=== PATIENT | female | born 1985 | race Caucasian/White ===

== ENCOUNTER 2016-06-10 22:07 | Emergency (ER) | payer OTHER ==
[~2016-06-10] VITALS: Ht 162.6 cm; Wt 101.4 kg
[~2016-06-10 22:07] MED LIST: MTR600X PO; OXYC-57 PO; PEDICHW53
[2016-06-10 22:09] VITALS: TEMP 37.1; Ht 162.6 cm; Wt 101.4 kg
[2016-06-10 22:34] VITALS: O2SAT 97
--- NOTE | 2016-06-10 22:44 | DIAGNOSTIC IMAGING REPORT ---
CHEST ONE VIEW PORTABLE CLINICAL HISTORY: CHEST PAIN dyspnea COMPARISON STUDY: No previous studies for comparison. FINDINGS: The bones soft tissues and hemidiaphragms are normal. The cardiomediastinal silhouette is normal. The lungs are clear. The pulmonary vasculature is normal. IMPRESSION: Negative chest. Electronically signed by: Alexis Gomez M.D. 06/10/2016 10:43 PM Dictated Date/Time: 06/10/2016 10:43 PM
[2016-06-10 23:17] LABS: BASO % 0.4 %; BASO ABS # 0.05 K/uL (0-0.2); COMPLETE YES; EOS % 2.1 %; IG% 0.2 %; LYMPH % 39.9 %; LYMPH ABS # 4.79 K/uL (1.2-3.4); MEAN CELL VOLUME 74.6 fL (80-100); MEAN CORPUSCULAR HEMOGLOBIN 23.8 pg (25-34); MEAN CORPUSCULAR HGB CONC 31.9 g/dl (32-36); MEAN PLATELET VOLUME 9.6 fL (7.4-10.4); MONO % 7.3 %; NEUT % 50.1 %; PLATELET COUNT 314 K/uL (130-400); RED BLOOD COUNT 4.96 M/uL (4.2-5.4); WHITE BLOOD COUNT 12.01 K/uL (4.8-10.8)
[2016-06-10] MEDS ORDERED: BUPR-79 PO (23:17)
[2016-06-10] MEDS ORDERED: CALC500C3 PO (23:17)
[2016-06-10] MEDS ORDERED: TRAZ50TA35 PO (23:17)
[2016-06-10] MEDS ORDERED: ISOT40CA PO (23:17)
[2016-06-10] MEDS ORDERED: METO25TA3 PO (23:17)
[2016-06-10 23:33] LABS: ALT/SGPT 26 U/L (12-78); AST/SGOT 14 U/L (15-37); BLOOD UREA NITROGEN 14 mg/dl (7-18); BUN/CREATININE RATIO 22.2 (10-20); CALCIUM 8.9 mg/dl (8.5-10.1); CARBON DIOXIDE 27 mmol/L (21-32); CHLORIDE 105 mmol/L (98-107); CREATININE 0.65 mg/dl (0.60-1.20); GLUCOSE 104 mg/dl (70-99); POTASSIUM 3.9 mmol/L (3.5-5.1); SODIUM 142 mmol/L (136-145)
[2016-06-10 23:43] LABS: ALKALINE PHOSPHATASE 67 U/L (45-117); CKMB/CK RATIO 1.3 (0-3.0); PREG INTERNAL NEGATIVE QC NEG CLEAR BACKGROUND; PREG INTERNAL POSITIVE QC POS CONTROL LINE
[2016-06-11] MEDS ORDERED: KETOROLAC TROMETHAMINE 30 MG/ML VIAL IV STA (00:26)
[2016-06-11 02:00] VITALS: BP 109/72; PULSE 76; O2SAT 98
--- NOTE | 2016-06-11 06:37 | EMERGENCY ROOM VISIT NOTE ---
History First contact with patient: 22:11 Chief Complaint: CHEST PAIN Stated Complaint: CHEST PAIN Nursing Triage Summary: pt c/o cp for past couple weeks, pt seen pcp this past week and was told if she had worse cp to come to er, pt also had some sob with the cp tonight History of Present Illness The patient is a 31 year old female who presents to the Emergency Room with complaints of chest pain with occasional shortness of breath for the past week who saw her family care doctor the other day and has a stress test scheduled for next week. Patient states the pain is worse with palpation and movement. She describes the pain as aching, ranging in severity 4 out of 10 to the midsternum. No recent travel. No control. Patient does not smoke. No family history of PE or DVT. Grandfather did have a heart attack in his 60s. Patient denies abdominal pain, fever, chills, cough, congestion, leg pain or swelling. Review of Systems See HPI for pertinent positives & negatives. A total of 10 systems reviewed and were otherwise negative. Past Medical/Surgical History Medical Problems: (1) 35 week Social History Smoking Status: Never Smoker Smokeless Tobacco Use: No Drug Use: none Housing Status: lives with family Current/Historical Medications Scheduled Bupropion (Wellbutrin Sr), 150 MG PO BID Isotretinoin (Claravis), 40 MG PO QPM Metoprolol Succ (Toprol Xl) (Toprol-Xl), 25 MG PO BID Trazodone Hcl (Trazodone), 50 MG PO HS Scheduled PRN Calcium Carbonate (Tums), 1,000 MG PO Q6 PRN for Heartburn Ibuprofen (Ibuprofen), 600 MG PO Q4H PRN for Pain, DRAKE, Cramping, or Fever Allergies Coded Allergies: No Known Allergies (Unverified , 06/10/16) Physical Exam Vital Signs Date Time Temp Pulse Resp B/P Pulse Ox O2 Delivery O2 Flow Rate FiO2 06/11/16 02:00 76 20 109/72 98 Room Air 06/11/16 00:00 86 20 115/67 98 Room Air 06/10/16 22:34 97 Room Air 06/10/16 22:33 97 Room Air 06/10/16 22:24 88 06/10/16 22:09 37.1 93 16 140/89 99 Room Air Pain Rating (0-10): 0 Physical Exam VITALS: Vitals are noted on the nurse's note and reviewed by myself. Vital signs stable. GENERAL: Pleasant female, in no acute distress, nondiaphoretic, well-developed well-nourished. SKIN: The skin was without rashes, erythema, edema, or bruising. There is no tenting of the skin. Capillary reflex less than 2 seconds. HEAD: Normocephalic atraumatic. EARS: External auditory canals clear, tympanic membranes pearly lynn without erythema or effusion bilaterally. EYES: Pupils equal round and reactive to light and accommodation. Conjunctivae without injection, sclerae without icterus. Extraocular movements intact. NOSE: Patent, turbinates without inflammation or discharge. MOUTH: Mucous membranes moist. Pharynx without erythema or exudate. Uvula midline. Airway patent. Tongue does not deviate. NECK: Supple without nuchal rigidity. No lymphadenopathy. No thyromegaly. Cervical spine is nontender. No JVD. HEART: Regular rate and rhythm without murmurs gallops or rubs. Chest tender to palpation midsternal easily reproducing symptoms LUNGS: Clear to auscultation bilaterally without wheezes, rales or rhonchi. No dullness to percussion. No retractions or accessory muscle use. ABDOMEN: Positive bowel sounds x 4. Normal tympanic percussion. Soft, nontender, without masses or organomegaly. Baxter sign negative. No guarding or rebound tenderness. MUSCULOSKELETAL: No muscle atrophy, erythema, or edema noted. NEURO: Patient was alert and oriented to person place and time. Normal sensation to light and sharp touch. No focal neurological deficits. Medical Decision & Procedures Laboratory Results 06/10/16 22:55 Red Blood Count 4.96, Mean Corpuscular Volume 74.6, Mean Corpuscular Hemoglobin 23.8, Mean Corpuscular Hemoglobin Concent 31.9, Mean Platelet Volume 9.6, Neutrophils (%) (Auto) 50.1, Lymphocytes (%) (Auto) 39.9, Monocytes (%) (Auto) 7.3, Eosinophils (%) (Auto) 2.1, Basophils (%) (Auto) 0.4, Neutrophils # (Auto) 6.02, Lymphocytes # (Auto) 4.79, Monocytes # (Auto) 0.88, Eosinophils # (Auto) 0.25, Basophils # (Auto) 0.05 06/10/16 22:55 Test 06/10/16 22:55 06/11/16 00:57 White Blood Count 12.01 K/uL (4.8-10.8) Red Blood Count 4.96 M/uL (4.2-5.4) Hemoglobin 11.8 g/dL (12.0-16.0) Hematocrit 37.0 % (37-47) Mean Corpuscular Volume 74.6 fL (80-100) Mean Corpuscular Hemoglobin 23.8 pg (25-34) Mean Corpuscular Hemoglobin Concent 31.9 g/dl (32-36) Platelet Count 314 K/uL (130-400) Mean Platelet Volume 9.6 fL (7.4-10.4) Neutrophils (%) (Auto) 50.1 % Lymphocytes (%) (Auto) 39.9 % Monocytes (%) (Auto) 7.3 % Eosinophils (%) (Auto) 2.1 % Basophils (%) (Auto) 0.4 % Neutrophils # (Auto) 6.02 K/uL (1.4-6.5) Lymphocytes # (Auto) 4.79 K/uL (1.2-3.4) Monocytes # (Auto) 0.88 K/uL (0.11-0.59) Eosinophils # (Auto) 0.25 K/uL (0-0.5) Basophils # (Auto) 0.05 K/uL (0-0.2) RDW Standard Deviation 43.3 fL (36.4-46.3) RDW Coefficient of Variation 15.8 % (11.5-14.5) Immature Granulocyte % (Auto) 0.2 % Immature Granulocyte # (Auto) 0.02 K/uL (0.00-0.02) D-Dimer < 190 ug/L FEU (0-500) Anion Gap 10.0 mmol/L (3-11) Est Creatinine Clear Calc Drug Dose 145.3 ml/min Estimated GFR () 137.1 Estimated GFR (Non- 118.3 BUN/Creatinine Ratio 22.2 (10-20) Calcium Level 8.9 mg/dl (8.5-10.1) Total Bilirubin 0.3 mg/dl (0.2-1) Direct Bilirubin < 0.1 mg/dl (0-0.2) Aspartate Amino Transf (AST/SGOT) 14 U/L (15-37) Alanine Aminotransferase (ALT/SGPT) 26 U/L (12-78) Alkaline Phosphatase 67 U/L (45-117) Total Creatine Kinase 89 U/L (26-192) Creatine Kinase MB 1.2 ng/ml (0.5-3.6) Creatine Kinase MB Ratio 1.3 (0-3.0) Total Protein 7.6 gm/dl (6.4-8.2) Albumin 3.7 gm/dl (3.4-5.0) Lipase 138 U/L (73-393) Thyroid Stimulating Hormone (TSH) 4.470 uIu/ml (0.300-4.500) Human Chorionic Gonadotropin, Qual NEG (NEG) Troponin I < 0.015 ng/ml (0-0.045) Medications Administered Medications (Trade) Dose Ordered Sig/[place] Route Start Time Stop Time Status Last Admin Dose Admin Ketorolac Tromethamine (Toradol Inj) 30 mg NOW STAT IV 06/11/16 00:26 06/11/16 00:27 DC 06/11/16 00:33 30 MG ED Course Prior records/ancillary studies reviewed. Triage Nursing notes reviewed. Additional history obtained from family. The patient's history was concerning for chest pain. Differential diagnosis: Etiologies such as cardiac ischemia, aortic dissection, pulmonary embolism, pneumonia, pneumothorax, musculoskeletal, infections, pericarditis, myocarditis , esophageal rupture, gastrointestinal, as well as others were entertained. Physical examination: As above. ER treatment provided: Toradol On reassessment the patient felt better. Diagnostic interpretation by me: The electrocardiogram was negative for pathologic change. Normal sinus, normal intervals, no acute ST-T wave changes. Impression normal sinus rhythm interpreted by myself The labs revealed troponin 2. Negative d-dimer Imaging studies: Chest x-ray with no acute consolidation or pneumothorax per my interpretation Exam and history seem consistent with noncardiac chest pain, most likely costochondritis. Symptoms are easily reproduced with palpation. Patient did not have acute abdomen on exam. Normal EKG. Negative troponin 2. Negative d- dimer. Patient felt better after Toradol. She is advised to keep her apartment as scheduled for her stress test or to return to the ER immediately for chest pain, difficulty breathing, diaphoresis, worsening signs or symptoms or as needed. By the evaluation outlined above emergent etiologies such as cardiac ischemia, aortic dissection, pulmonary embolism, pneumonia, pneumothorax, infections, pericarditis, myocarditis, gastrointestinal, as well as others were deemed relatively unlikely. The pt informed about the findings as listed above. All questions were answered and pleased with the treatment. Return instructions were outlined and the patient was discharged in stable condition. Referral: The patient was referred back to primary care physician for follow-up in 2 to 3 days for a recheck of the current condition. Case reviewed with my attending Medical Decision As above Impression Primary Impression: Costochondritis Departure Information Dispostion Home / Self-Care Condition GOOD Forms HOME CARE DOCUMENTATION FORM, IMPORTANT VISIT INFORMATION Patient Instructions [facility], ED Chest Pain Costochondritis Additional Instructions Ibuprofen(Motrin, Advil) may be used for fever or pain. Use 600mg every six hours as needed. Take with food. Avoid using more than 2400mg in a 24 hour period. Do not use 2400mg per day for more than three consecutive days without physician direction. Prolonged inappropriate use can lead to stomach upset or ulcers. (AND/OR) Acetaminophen(Tylenol) may be used for fever or pain. Use 1000mg every six hours as needed. Avoid using more than 3000mg in a 24 hour period. Rest and drink plenty of fluids as tolerated. Continue current medications. Avoid strenuous activities and anything that worsens your pain. Resume normal activities once your symptoms resolve. Return to the ER immediately for worsening or persistent chest pain, abdominal pain, vomiting, fevers, chest pains, difficulty breathing, worsening of your condition, or as needed. Follow up with your primary physician in 2-3 days for a recheck of your current condition. Keep your appointment as scheduled for your stress test next week.
== END 2016-06-11 02:07 | disposition home or self-care (01) ==
LOC: C.EDB 22:08 → C.EDA 06-11 02:07
DX: M94.0 Chondrocostal junction syndrome [Tietze] (principal); R06.02 Shortness of breath; Z79.899 Other long term (current) drug therapy

== ENCOUNTER 2018-09-18 08:43 | Inpatient (IN) ==
[2018-09-18] MEDS ORDERED: KETOROLAC TROMETHAMINE 15 MG/ML VIAL IV STA (09:47)
[2018-09-18] MEDS ORDERED: ALBUT/IPRATROP 3MG/0.5MG NEB 3 ML VIAL NEB STA ×2 (09:47→10:57)
[2018-09-18] MEDS ORDERED: ONDANSETRON INJ 2 MG/ML 2 ML VIAL IV STA (09:47)
[2018-09-18] MEDS ORDERED: SODIUM CHLORIDE 0.9% 1000ML 1,000 ML IV SCH (10:00)
--- NOTE | 2018-09-18 10:08 | XRay Report ---
XR chest 1V portable HISTORY: cough COMPARISON: Chest 06/10/2016. FINDINGS: There is a new right medial lung base airspace opacity which partially obscures the right h emidiaphragm. The left lung is clear. The heart is normal in size. No pleural effusions. No pneumotho rax. IMPRESSION: A new right lower lobe airspace opacity which likely represents a pneumonia. Electronically signed by: Jonnie Dickerson M.D. 09/18/2018 10:07 AM
--- NOTE | 2018-09-18 10:33 | Emergency Department Note ---
ED Provider Note CHIEF COMPLAINT: Cough, SOB, vomiting HISTORY OF PRESENTING ILLNESS: This is a 33-year-old female who presents to the emergency department by private vehicle with complaints of vomiting that started this morning. She states that she had abrupt onset of vomiting around 1 AM, nonbilious and nonbloody. She denies any abdominal pain or diarrhea associated with her symptoms. She states that she has been feeling short of breath for the past few days and has been dealing with a progressively worsening cough over the past week. She states that she has a history of asthma and saw her PCP for this, they put her on steroids but no antibiotic. She has been using her inhaler off and on with no improvement. She notes that she has been having some fevers and chills at home, generalized body aches, and some headaches off and on as well. She denies a headache currently. She denies any chest pain. She denies any hemoptysis. She denies any urinary symptoms or unusual rash. REVIEW OF SYSTEMS: A complete 10 point review of systems was reviewed with the patient with pertinent positives and negatives as per history of present illness. All else were negative. PAST MEDICAL HISTORY: Depression, asthma, hypertension, section, ton sillectomy SOCIAL HISTORY: Lives at home, she denies tobacco use ALLERGIES: No known allergies PHYSICAL EXAM: CONSTITUTIONAL: Pleasant and cooperative. Nontoxic-appearing and in no acute distress, but appears to feel unwell. Moderately dehydrated. HEENT: Normocephalic, atraumatic. PERRL, EOMI. TMs normal. Pharynx normal. Dry mucous membranes. NECK: Supple, full active range of motion without discomfort. No nuchal rigidity or meningismus. Mild bilateral anterior cervical adenopathy. RESPIRATORY: Diminished in the right lower base with a few fine crackles, scattered expiratory wheezes, no rhonchi or stridor. Equal expansion bilaterally. No tachypnea or accessory muscle use noted. CARDIOVASCULAR: Tachycardic. Regular rhythm with no murmurs, rubs or gallops. Normal peripheral perfusion, 2+ distal pulses in all 4 extremities. No edema. GASTROINTESTINAL: Soft, nontender throughout, nondistended. No rebound tenderness or guarding. No palpable masses or HSM. Bowel sounds present in all quadrants. No CVA tenderness bilaterally. MUSCULOSKELETAL: Full range of motion of all joints without discomfort. INTEGUMENTARY: No rash or other significant dermatologic conditions noted. NEUROLOGIC: Alert and oriented X 4 with normal affect. Normal strength and sensation in all 4 extremities. Normal speech. Normal gait observed. ED COURSE AND MEDICAL DECISION MAKING: CC: Patient presenting with complaint of cough, shortness of breath, and vomiting DIFFERENTIAL DIAGNOSIS: Includes, but not limited to viral illness, gastroenteritis, gastritis, peptic ulcer disease, pancreatitis, cholecystitis, bronchitis, asthma exacerbation, pneumonia, UTI, sepsis/bacteremia, dehydration, among others. INTERPRETATION OF LABS: Marked leukocytosis with left shift, mild anemia, no significant elect light abnormalities, normal renal function, normal liver enzymes and lipase. Significantly elevated lactic acid level. Serum negative. UA consistent with mild dehydration, negative for infection. IMAGING: XR chest 1V portable HISTORY: cough COMPARISON: Chest 06/10/2016. FINDINGS: There is a new right medial lung base airspace opacity which partially obscures the right hemidiaphragm. The left lung is clear. The heart is normal in size. No pleural effusions. No pneumothorax. IMPRESSION: A new right lower lobe airspace opacity which likely represents a pneumonia. MEDICATION RECONCILIATION: I attest that I have personally reviewed the patient's current medication list. INITIAL VITAL SIGNS REVIEW: I reviewed the patient's initial vital signs and interpret them as follows: T: Afebrile; BP: Normotensive; HR: Tachycardic; RR: Within normal limits; Pulse Ox: Within normal limits on room air. Blood pressure screening: The patient was found to have normal blood pressure on screening and does not require follow-up for repeat blood pressure check. MDM SUMMARY: Patient was evaluated at bedside, history and physical exam performed. Patient is alert and oriented, in no acute distress, resting calmly in stretcher. Patient is nontoxic-appearing, but does appear to feel unwell and is noted to be moderately dehydrated. Patient states that she feels like she has a fever, I did recheck her temperature myself and was noted to be elevated at 39.1, p.o. Tylenol and IV Toradol was ordered for this. Orders were placed at bedside for labs, UA, blood cultures x2 and lactic acid, IV fluid bolus of 30 mL/kg per sepsis protocol, DuoNeb treatment for wheezing and shortness of breath, chest x-ray to evaluate for cardiopulmonary disease. Patient discussed with Dr. Solis, who agrees with my assessment, plan, and disposition. Labs and imaging reviewed as above, notable for significant leukocytosis with left shift as well as lactic acidosis. Chest x-ray shows a right lower lobe pneumonia, given her respiratory symptoms, I suspect this is most likely the cause for her fevers. She was covered empirically with 2 g IV cefepime and 500 mg IV azithromycin. I spoke with Dr. Subramanian, [facility] Hospitalist, who agrees to evaluate the patient for admission. Patient reassessed multiple times throughout ED stay, she has remained hemodynamically stable, tachycardia is downtrending with IV fluids, and she is defervescing appropriately after Toradol and Tylenol. Lung sounds reassessed, wheezing improved after DuoNeb's. Patient was updated on all results and plan for admission, she verbalized understanding and was in agreement with this plan. Patient was stable at time of admission. CRITICAL CARE NOTE: I have personally spent greater than 35 minutes of critical care time in the direct management of this patient. This includes bedside care, interpretation of diagnostic studies, and testing, discussion with consultants, patient, and family members, and other required patient management activities. This 35 minutes is in excess of all separately billable procedures. The chart was completed utilizing [employer] Speech voice recognition software. Grammatical errors, random word insertions, pronoun errors, and incomplete sentences are an occasional consequence of this system due to software limitations, ambient noise, and hardware issues. Any formal questions or concerns about the content, text, or information contained within the body of t his dictation should be directly addressed to the nurse practitioner for clarification. Impression & Plan Pneumonia, Elevated lactic acid level, Tachycardia Past Med/Surg History Medical History Asthma HTN (hypertension) History of wisdom tooth extraction Depression Surgical History History of section History of tonsillectomy Family History Other Cancer Diabetes Hypertension Social History Preferred Language: Estonian Communication Ability: Effective Beliefs That Will Affect Care: None marital status: Current Living Situation: Significant Other current occupational status: employed Other Information That Helps Us Care for You: No Feels Safe at Home: Yes Safety Concerns: Feels Safe At This Time Smoking Status: Never smoker Hx Alcohol Use: No Hx Substance Use: No Results & Data Vital Signs Vital Signs - 24 hr 09/18/18 08:55 09/18/18 10:07 09/18/18 10:24 Temperature 37.5 C Temperature Source Oral Sepsis Recent Fever Within 48 Hours No Sepsis New/Unexplained Change in Mental Status No Sepsis Action Taken by Nursing No Action Required Pulse Rate 120 H Pulse Rate [Right Apical] 118 H Respiratory Rate 18 20 Respiratory Effort / Characteristics Non-Labored Spontaneous Non-Labored Spontaneous Respiratory Depth Normal Respiratory Pattern Regular Blood Pressure 129/69 Blood Pressure [Right Arm] Blood Pressure Mean 89 Blood Pressure Mean [Right Arm] Blood Pressure Position [Right Arm] Pulse Oximetry 99 96 97 Oxygen Delivery Method Room Air Room Air Room Air 09/18/18 10:27 09/18/18 11:04 09/18/18 11:22 Temperature 39.1 C H Temperature Source Oral Sepsis Recent Fever Within 48 Hours Sepsis New/Unexplained Change in Mental Status Sepsis Action Taken by Nursing Pulse Rate Pulse Rate [Right Apical] 123 H 132 H Respiratory Rate 22 20 Respiratory Effort / Characteristics Spontaneous Respiratory Depth Normal Respiratory Pattern Blood Pressure Blood Pressure [Right Arm] 117/71 Blood Pressure Mean Blood Pressure Mean [Right Arm] 86 Blood Pressure Position [Right Arm] Sitting Pulse Oximetry 99 96 Oxygen Delivery Method Room Air Room Air 09/18/18 12:09 09/18/18 12:27 Temperature Temperature Source Sepsis Recent Fever Within 48 Hours Sepsis New/Unexplained Change in Mental Status Sepsis Action Taken by Nursing Pulse Rate Pulse Rate [Right Apical] Respiratory Rate Respiratory Effort / Characteristics Spontaneous Short of Breath SOB on Exertion Respiratory Depth Deep Respiratory Pattern Irregular Blood Pressure Blood Pressure [Right Arm] Blood Pressure Mean Blood Pressure Mean [Right Arm] Blood Pressure Position [Right Arm] Pulse Oximetry 95 Oxygen Delivery Method Room Air Room Air Laboratory Data Result diagrams: 09/18/18 10:12 09/18/18 10:12 Lab Results 09/18/18 09/18/18 09/18/18 Range/Units 10:12 10:12 10:12 WBC 32.77 H* (4.8-10.8) K/uL RBC 4.79 (4.2-5.4) M/uL Hgb 11.3 L (12.0-16.0) g/dL Hct 34.3 L (37-47) % MCV 71.6 L (80-100) fL MCH 23.6 L (25-34) pg MCHC 32.9 (32-36) g/dL RDW Std Deviation 42.0 (36.4-46.3) fL RDW Coeff of Terese 15.9 H (11.5-14.5) % Plt Count 418 H (130-400) K/uL MPV 9.1 (7.4-10.4) fL Immature Gran % (Auto) 0.7 % Neut % (Auto) 83.4 % Lymph % (Auto) 8.7 % [place] % (Auto) 7.0 % Eos % (Auto) 0.1 % Baso % (Auto) 0.1 % Immature Gran # (Auto) 0.22 H (0.00-0.02) K/uL Neut # (Auto) 27.35 H (1.4-6.5) K/uL Lymph # (Auto) 2.86 (1.2-3.4) K/uL [place] # (Auto) 2.28 H (0.11-0.59) K/uL Eos # (Auto) 0.03 (0-0.5) K/uL Baso # (Auto) 0.03 (0-0.2) K/uL Sodium 137 (136-145) mmol/L Potassium 3.5 (3.5-5.1) mmol/L Chloride 99 (98-107) mmol/L Carbon Dioxide 26 (21-32) mmol/L Anion Gap 13.0 H (3-11) BUN 18 (7-18) mg/dl Creatinine 0.93 (0.6-1.2) mg/dl Est Cr Clr Drug Dosing 97.4 ml/min Est GFR ( Amer) 93.6 Est GFR (Non-Af Amer) 80.8 BUN/Creatinine Ratio 19.5 (10-20) Glucose 98 (70-99) mg/dl Lactate (0.4-2.0) mmol/L Calcium 9.0 (8.5-10.1) mg/dl Total Bilirubin 0.6 (0.2-1) mg/dl AST 13 L (15-37) U/L ALT 28 (12-78) U/L Alkaline Phosphatase 60 (45-117) U/L Total Protein 7.7 (6.4-8.2) gm/dl Albumin 3.4 (3.4-5.0) gm/dl Globulin 4.3 H (2.5-4.0) gm/dl Albumin/Globulin Ratio 0.8 L (0.9-2) Lipase 86 (73-393) U/L HCG, Qual Negative (Negative) Urine Color Urine Appearance (Clear) Urine pH (4.5-7.5) Ur Specific [place] (1.000-1.030) Urine Protein (Negative) Urine Glucose (UA) (Negative) Urine Ketones (Negative) Urine Blood (Negative) Urine Nitrite (Negative) Urine Bilirubin (Negative) Urine Urobilinogen (Negative) Ur Leukocyte Esterase (Negative) Urine WBC (Auto) (0-5) /hpf Urine RBC (Auto) (0-4) /hpf U Hyaline Cast (Auto) (0-5) /lpf U Epithel Cells (Auto) (0-5) /lpf Urine Bacteria (Auto) (Negative) 09/18/18 09/18/18 Range/Units 11:13 11:41 WBC (4.8-10.8) K/uL RBC (4.2-5.4) M/uL Hgb (12.0-16.0) g/dL Hct (37-47) % MCV (80-100) fL MCH (25-34) pg MCHC (32-36) g/dL RDW Std Deviation (36.4-46.3) fL RDW Coeff of Terese (11.5-14.5) % Plt Count (130-400) K/uL MPV (7.4-10.4) fL Immature Gran % (Auto) % Neut % (Auto) % Lymph % (Auto) % [place] % (Auto) % Eos % (Auto) % Baso % (Auto) % Immature Gran # (Auto) (0.00-0.02) K/uL Neut # (Auto) (1.4-6.5) K/uL Lymph # (Auto) (1.2-3.4) K/uL [place] # (Auto) (0.11-0.59) K/uL Eos # (Auto) (0-0.5) K/uL Baso # (Auto) (0-0.2) K/uL Sodium (136-145) mmol/L Potassium (3.5-5.1) mmol/L Chloride (98-107) mmol/L Carbon Dioxide (21-32) mmol/L Anion Gap (3-11) BUN (7-18) mg/dl Creatinine (0.6-1.2) mg/dl Est Cr Clr Drug Dosing ml/min Est GFR ( Amer) Est GFR (Non-Af Amer) BUN/Creatinine Ratio (10-20) Glucose (70-99) mg/dl Lactate 3.7 H* (0.4-2.0) mmol/L Calcium (8.5-10.1) mg/dl Total Bilirubin (0.2-1) mg/dl AST (15-37) U/L ALT (12-78) U/L Alkaline Phosphatase (45-117) U/L Total Protein (6.4-8.2) gm/dl Albumin (3.4-5.0) gm/dl Globulin (2.5-4.0) gm/dl Albumin/Globulin Ratio (0.9-2) Lipase (73-393) U/L HCG, Qual (Negative) Urine Color Dark Yellow Urine Appearance Clear (Clear) Urine pH 8.5 H (4.5-7.5) Ur Specific [place] 1.027 (1.000-1.030) Urine Protein Negative (Negative) Urine Glucose (UA) Negative (Negative) Urine Ketones Trace H (Negative) Urine Blood Trace H (Negative) Urine Nitrite Negative (Negative) Urine Bilirubin Negative (Negative) Urine Urobilinogen Negative (Negative) Ur Leukocyte Esterase Negative (Negative) Urine WBC (Auto) 1-5 (0-5) /hpf Urine RBC (Auto) 0-4 (0-4) /hpf U Hyaline Cast (Auto) 1-5 (0-5) /lpf U Epithel Cells (Auto) >30 H (0-5) /lpf Urine Bacteria (Auto) Negative (Negative) Administered Medications Guaifenesin/Codeine Phosphate (Robitussin-Ac Sugar Free) 10 ml PO Q6H PRN PRN Reason: Cough Stop: 10/18/18 14:29 Last Admin: 09/18/18 16:00 Dose: 10 ml Documented by: [id number] Methylprednisolone 30 mg/ (Syringe) 0.48 mls @ 1.5 mls/min IV TID RADHA Stop: 10/18/18 14:29 Last Admin: 09/18/18 15:55 Dose: 1.5 mls/min Documented by: [id number] Sodium Chloride (Nss 1000ml) 1,000 mls @ 125 mls/hr IV .Q8H RADHA Stop: 09/19/18 06:29 Last Admin: 09/18/18 15:56 Dose: 125 mls/hr Documented by: [id number] Ondansetron HCl (Zofran) 4 mg IV Q6H PRN PRN Reason: Nausea Stop: 10/18/18 14:29 Last Admin: 09/18/18 15:56 Dose: 4 mg Documented by: [id number] Discontinued Medications Acetaminophen (Tylenol) 1,000 mg PO NOW STA Stop: 09/18/18 10:58 Last Admin: 09/18/18 11:18 Dose: 1,000 mg Documented by: [id number] Albuterol (Duoneb) 3 ml NEB NOW STA Stop: 09/18/18 09:48 Last Admin: 09/18/18 10:04 Dose: 3 ml Documented by: [id number] Albuterol (Duoneb) 3 ml NEB NOW STA Stop: 09/18/18 10:58 Last Admin: 09/18/18 11:22 Dose: 3 ml Documented by: [id number] Sodium Chloride (Nss 1000ml) 1,000 mls @ 999 mls/hr IV .Q1H1M RADHA Stop: 09/18/18 11:00 Last Infusion: 09/18/18 11:22 Dose: 0 mls/hr Documented by: [id number] Admin: 09/18/18 10:18 Dose: 999 mls/hr Documented by: [id number] Sodium Chloride (Nss 1000ml) 2,000 mls @ 999 mls/hr IV .Q2H1M ONE Stop: 09/18/18 13:05 Last Infusion: 09/18/18 13:33 Dose: 0 mls/hr Documented by: [id number] Admin: 09/18/18 11:17 Dose: 999 mls/hr Documented by: [id number] Azithromycin 500 mg/ Dextrose 255 mls @ 125 mls/hr IV ONE ONE Stop: 09/18/18 13:19 Last Infusion: 09/18/18 14:12 Dose: 0 mls/hr Documented by: [id number] Admin: 09/18/18 11:47 Dose: 125 mls/hr Documented by: [id number] Cefepime HCl 2,000 mg/ Syringe 20 mls @ 5.5 mls/min IV NOW STA; Protocol Stop: 09/18/18 11:20 Last Admin: 09/18/18 11:44 Dose: 5.5 mls/min Documented by: [id number] Ketorolac Tromethamine (Toradol) 15 mg IV NOW STA Stop: 09/18/18 09:48 Last Admin: 09/18/18 10:19 Dose: 15 mg Documented by: [id number] Ondansetron HCl (Zofran) 4 mg IV NOW STA Stop: 09/18/18 09:48 Last Admin: 09/18/18 10:19 Dose: 4 mg Documented by: [id number] Discharge Plan Visit Data *Final* Discharge Date/Time: 09/18/18 13:54 Chief Complaint: Vomiting Stated Complaint: NAUSEA, VOMITTING, PAIN, COUGH ED Provider: Don Solis ED Midlevel Provider: Kathy Concepcion Discharge Problem: Pneumonia, Elevated lactic acid level, Tachycardia Patient Disposition: Admitted As Inpatient Discharge Instructions Interventions: ED Discharge Assessment Last Done: 09/18/18 13:54
[2018-09-18 10:39] LABS: Albumin Level 3.4 gm/dl (3.4-5.0); BUN Creatinine Ratio 19.5 (10-20); Creatinine Clr Calc Pharmacy 97.4 ml/min; Est GFR (African American) 93.6; Est GFR (Non-African American) 80.8; Potassium 3.5 mmol/L (3.5-5.1)
[2018-09-18 10:42] LABS: Albumin Globulin Ratio 0.8 (0.9-2); Bilirubin,Total 0.6 mg/dl (0.2-1); Globulin 4.3 gm/dl (2.5-4.0); Total Protein 7.7 gm/dl (6.4-8.2)
[2018-09-18 10:51] LABS: Basophils # (auto) 0.03 K/uL (0-0.2); Basophils % (auto) 0.1 %; Eosinophils # (auto) 0.03 K/uL (0-0.5); Eosinophils % (auto) 0.1 %; Hematocrit (blood only) 34.3 % (37-47); Hemoglobin 11.3 g/dL (12.0-16.0); Immature Granulocytes # (auto) 0.22 K/uL (0.00-0.02); Immature Granulocytes % (auto) 0.7 %; Lymphocytes # (auto) 2.86 K/uL (1.2-3.4); Lymphocytes % (auto) 8.7 %; Mean Corpuscular Hgb Conc 32.9 g/dL (32-36); Mean Corpuscular Volume 71.6 fL (80-100); Mean Platelet Volume 9.1 fL (7.4-10.4); Monocytes # (auto) 2.28 K/uL (0.11-0.59); Neutrophils # (auto) 27.35 K/uL (1.4-6.5); Neutrophils % (auto) 83.4 %; Platelet Count 418 K/uL (130-400); RDW Coefficient of Variation 15.9 % (11.5-14.5); Red Blood Count 4.79 M/uL (4.2-5.4); White Blood Count 32.77 K/uL (4.8-10.8)
[2018-09-18 10:56] LABS: Pregnancy Test, Serum Negative (Negative)
[2018-09-18] MEDS ORDERED: ACETAMINOPHEN 500 MG TAB PO STA (10:57)
[2018-09-18] MEDS ORDERED: SODIUM CHLORIDE 0.9% 1000ML 2,000 ML IV ONE (11:05)
[2018-09-18] MEDS ORDERED: AZITHROMYCIN 500 MG in DEXTROSE 5% 250 ML IV ONE (11:17)
[2018-09-18] MEDS ORDERED: CEFEPIME 2,000 MG in SYRINGE 7.5 ML IV STA (11:17)
[2018-09-18 11:55] LABS: Appearance Urine Clear (Clear); Bacteria Urine Automated Negative (Negative); Bilirubin Urine Negative (Negative); Blood Urine Trace (Negative); Color Urine Dark Yellow; Epithelial Cell Urine Auto >30 /lpf (0-5); Glucose Urine UA Negative (Negative); Ketones Urine Trace (Negative); Leukocyte Esterase Urine Negative (Negative); Nitrite Urine Negative (Negative); RBC Urine Automated 0-4 /hpf (0-4); Specific Gravity Urine 1.027 (1.000-1.030); Urobilinogen Urine Negative (Negative); pH Urine 8.5 (4.5-7.5)
[2018-09-18 12:03] LABS: Protein Urine Negative (Negative)
--- NOTE | 2018-09-18 13:11 | History & Physical Report ---
Date of Service September 18, 2018 Assessment & Plan (1) Pneumonia: Patient febrile at 39.1, tachycardic at 132 bpm, neutrophil predominant leukocytosis (WBC=32.77, recent Prednisone use). Adequate oxygenation on room air, no respiratory distress. Severe cough with conversation and deep breathin g. Coarse breath sounds bilaterally with scattered inspiratory and expiratory wheezing. CXR with new RLL airspace opacity favoring PNA. Patient most likely with CAP in setting of asthma -Admit to medical floor with telemetry -Follow culture results -Azithromycin and Ceftriaxone for CAP coverage -Albuterol q 2 hours PRN -Tessalon perles and Guaifenasin with Codeine for symptomatic management -Tylenol PRN -Zofran PRN Present on Admission?: Yes (2) Asthma: Patient with history of well controlled asthma. Presents today with new PNA, diffuse wheezing and SOB -Albuterol q 2 hours PRN -Solumedrol 30mg IV TID -Continue to monitor Present on Admission?: Yes (3) Hypertension: Blood pressure presently well controlled. Patient on HCTZ at home, being titrated by PCP -Continue HCTZ daily -Continue to monitor BP Present on Admission?: Yes (4) Depression: Chronic. Stable on current medication regimen -Continue Wellbutrin daily Present on Admission?: Yes (5) Anemia: Patient with microcytic, hypochromic anemia. Hg=11.3, Hct=34.3, HCV=71.6, MCH=23.6. Presently being worked up by Ob-Classer for DUB in setting of PCOS. No active bleeding at present. -Check iron studies -CBC in AM (6) Elevated lactic acid level: Lactate=3.7. Patient is hemodynamically stable, non-toxic in appearance -Repeat lactate at 13:00 -Continue to monitor F/E/N - NSS at 125mL/hr x 2 liters, monitor electrolytes and replete as needed, heart healthy diet as tolerated Ppx - Lovenox for DVT prophylaxis Code - Full Dispo - Med with tele Present on Admission?: Yes History of Present Illness Chief Complaint: SOB Primary Care Provider: DO Ricci Ramosricki Niño is a 33yo female with history of asthma, HTN and depression presenting with cough/SOB and fever. Patient reports dry cough for the last week as well as worsening shortness of breath. She was started on Prednisone taper 5 days ago which she has been taking as directed. This AM she developed fever and chills as well as nausea with 5-6 episodes of non-bloody/non-bilious vomiting. Patient states that she overall feels very sick. No additional complaints at this time. ER Course: Tylenol, Albuterol, Azithromycin, Cefepime, Toradol, Zofran Allergies Allergy/AdvReac Type Severity Reaction Status Date / Time No Known Allergies Allergy Verified 09/18/18 09:52 Home Medications Home Medications Medication Instructions Recorded Confirmed Type bupropion HCl [Wellbutrin SR] 200 mg PO BID 08/31/18 09/18/18 History metformin 500 mg PO BID 08/31/18 09/18/18 History benzonatate 200 mg PO TID PRN 09/18/18 09/18/18 History hydrochlorothiazide 25 mg PO DAILY 09/18/18 09/18/18 History prednisone 10 mg PO UD 09/18/18 09/18/18 History Past Med/Surg History Medical History Asthma HTN (hypertension) History of wisdom tooth extraction Depression Surgical History History of section History of tonsillectomy Family History Other Cancer Diabetes Hypertension Social History Preferred Language: Citizen Of [place] Communication Ability: Effective Beliefs That Will Affect Care: None marital status: Current Living Situation: Significant Other current occupational status: employed Other Information That Helps Us Care for You: No Feels Safe at Home: Yes Safety Concerns: Feels Safe At This Time Smoking Status: Never smoker Hx Alcohol Use: No Hx Substance Use: No Review of Systems Review of Systems: All systems reviewed & are unremarkable except as noted in HPI & below Patient had tingling of hands and feet this AM that woke her from sleep +Constipation Physical Exam Physical Exam: General: NAD, ill in appearance, AA&O x 4, cough with speaking and deep breathing Skin: warm, dry, intact, no rashes or lesions HEENT: NC/AT, PERRL, EOMI, anicteric sclera, conjunctiva without injection, external ear normal to inspection and nontender, nares patent, slightly dry mucus membranes, dentition intact, no oropharyngeal lesions, neck supple, trachea midline, no LAD, no thyromegaly, no JVD Heart: +S1/S2, regular, tachycardic, no m/r/g Lungs: equal air entry bilaterally, coarse breath sounds bilaterally with rhonchi, diffuse wheezing Abd: +BS, soft, NT/ND, no masses/organomegaly/ascites Ext: warm, 2+ pulses in UE/LE bilaterally, no clubbing/cyanosis or edema Neuro: nonfocal, patient AA&O x 4, speech intact, no facial droop, moving all extremities on command with equal strength 5/5 Results & Data Vital Signs (Past 12 Hours) Vital Signs Temp Pulse Pulse Resp BP BP Pulse Ox 09/18/18 12:27 95 09/18/18 11:22 132 H 20 96 09/18/18 11:04 39.1 C H 09/18/18 10:27 123 H 22 117/71 99 09/18/18 10:24 97 09/18/18 10:07 118 H 20 96 09/18/18 08:55 37.5 C 120 H 18 129/69 99 Laboratory Results Lab Results 09/18/18 09/18/18 09/18/18 Range/Units 10:12 10:12 10:12 WBC 32.77 H* (4.8-10.8) K/uL RBC 4.79 (4.2-5.4) M/uL Hgb 11.3 L (12.0-16.0) g/dL Hct 34.3 L (37-47) % MCV 71.6 L (80-100) fL MCH 23.6 L (25-34) pg MCHC 32.9 (32-36) g/dL RDW Std Deviation 42.0 (36.4-46.3) fL RDW Coeff of Terese 15.9 H (11.5-14.5) % Plt Count 418 H (130-400) K/uL MPV 9.1 (7.4-10.4) fL Immature Gran % (Auto) 0.7 % Neut % (Auto) 83.4 % Lymph % (Auto) 8.7 % [place] % (Auto) 7.0 % Eos % (Auto) 0.1 % Baso % (Auto) 0.1 % Immature Gran # (Auto) 0.22 H (0.00-0.02) K/uL Neut # (Auto) 27.35 H (1.4-6.5) K/uL Lymph # (Auto) 2.86 (1.2-3.4) K/uL [place] # (Auto) 2.28 H (0.11-0.59) K/uL Eos # (Auto) 0.03 (0-0.5) K/uL Baso # (Auto) 0.03 (0-0.2) K/uL PT (9.0-12.0) Seconds INR (0.9-1.1) APTT (21.0-31.0) Seconds PTT Ratio Sodium 137 (136-145) mmol/L Potassium 3.5 (3.5-5.1) mmol/L Chloride 99 (98-107) mmol/L Carbon Dioxide 26 (21-32) mmol/L Anion Gap 13.0 H (3-11) BUN 18 (7-18) mg/dl Creatinine 0.93 (0.6-1.2) mg/dl Est Cr Clr Drug Dosing 97.4 ml/min Est GFR ( Amer) 93.6 Est GFR (Non-Af Amer) 80.8 BUN/Creatinine Ratio 19.5 (10-20) Glucose 98 (70-99) mg/dl Lactate (0.4-2.0) mmol/L Calcium 9.0 (8.5-10.1) mg/dl Phosphorus (2.5-4.9) mg/dl Magnesium (1.8-2.4) mg/dl Total Bilirubin 0.6 (0.2-1) mg/dl AST 13 L (15-37) U/L ALT 28 (12-78) U/L Alkaline Phosphatase 60 (45-117) U/L Total Protein 7.7 (6.4-8.2) gm/dl Albumin 3.4 (3.4-5.0) gm/dl Globulin 4.3 H (2.5-4.0) gm/dl Albumin/Globulin Ratio 0.8 L (0.9-2) Lipase 86 (73-393) U/L HCG, Qual Negative (Negative) Urine Color Urine Appearance (Clear) Urine pH (4.5-7.5) Ur Specific [place] (1.000-1.030) Urine Protein (Negative) Urine Glucose (UA) (Negative) Urine Ketones (Negative) Urine Blood (Negative) Urine Nitrite (Negative) Urine Bilirubin (Negative) Urine Urobilinogen (Negative) Ur Leukocyte Esterase (Negative) Urine WBC (Auto) (0-5) /hpf Urine RBC (Auto) (0-4) /hpf U Hyaline Cast (Auto) (0-5) /lpf U Epithel Cells (Auto) (0-5) /lpf Urine Bacteria (Auto) (Negative) 09/18/18 09/18/18 09/18/18 Range/Units 11:13 11:41 14:55 WBC (4.8-10.8) K/uL RBC (4.2-5.4) M/uL Hgb (12.0-16.0) g/dL Hct (37-47) % MCV (80-100) fL MCH (25-34) pg MCHC (32-36) g/dL RDW Std Deviation (36.4-46.3) fL RDW Coeff of Terese (11.5-14.5) % Plt Count (130-400) K/uL MPV (7.4-10.4) fL Immature Gran % (Auto) % Neut % (Auto) % Lymph % (Auto) % [place] % (Auto) % Eos % (Auto) % Baso % (Auto) % Immature Gran # (Auto) (0.00-0.02) K/uL Neut # (Auto) (1.4-6.5) K/uL Lymph # (Auto) (1.2-3.4) K/uL [place] # (Auto) (0.11-0.59) K/uL Eos # (Auto) (0-0.5) K/uL Baso # (Auto) (0-0.2) K/uL PT (9.0-12.0) Seconds INR (0.9-1.1) APTT (21.0-31.0) Seconds PTT Ratio Sodium (136-145) mmol/L Potassium (3.5-5.1) mmol/L Chloride (98-107) mmol/L Carbon Dioxide (21-32) mmol/L Anion Gap (3-11) BUN (7-18) mg/dl Creatinine (0.6-1.2) mg/dl Est Cr Clr Drug Dosing ml/min Est GFR ( Amer) Est GFR (Non-Af Amer) BUN/Creatinine Ratio (10-20) Glucose (70-99) mg/dl Lactate 3.7 H* 2.5 H* (0.4-2.0) mmol/L Calcium (8.5-10.1) mg/dl Phosphorus (2.5-4.9) mg/dl Magnesium (1.8-2.4) mg/dl Total Bilirubin (0.2-1) mg/dl AST (15-37) U/L ALT (12-78) U/L Alkaline Phosphatase (45-117) U/L Total Protein (6.4-8.2) gm/dl Albumin (3.4-5.0) gm/dl Globulin (2.5-4.0) gm/dl Albumin/Globulin Ratio (0.9-2) Lipase (73-393) U/L HCG, Qual (Negative) Urine Color Dark Yellow Urine Appearance Clear (Clear) Urine pH 8.5 H (4.5-7.5) Ur Specific [place] 1.027 (1.000-1.030) Urine Protein Negative (Negative) Urine Glucose (UA) Negative (Negative) Urine Ketones Trace H (Negative) Urine Blood Trace H (Negative) Urine Nitrite Negative (Negative) Urine Bilirubin Negative (Negative) Urine Urobilinogen Negative (Negative) Ur Leukocyte Esterase Negative (Negative) Urine WBC (Auto) 1-5 (0-5) /hpf Urine RBC (Auto) 0-4 (0-4) /hpf U Hyaline Cast (Auto) 1-5 (0-5) /lpf U Epithel Cells (Auto) >30 H (0-5) /lpf Urine Bacteria (Auto) Negative (Negative) 09/18/18 09/18/18 Range/Units 14:55 14:55 WBC (4.8-10.8) K/uL RBC (4.2-5.4) M/uL Hgb (12.0-16.0) g/dL Hct (37-47) % MCV (80-100) fL MCH (25-34) pg MCHC (32-36) g/dL RDW Std Deviation (36.4-46.3) fL RDW Coeff of Terese (11.5-14.5) % Plt Count (130-400) K/uL MPV (7.4-10.4) fL Immature Gran % (Auto) % Neut % (Auto) % Lymph % (Auto) % [place] % (Auto) % Eos % (Auto) % Baso % (Auto) % Immature Gran # (Auto) (0.00-0.02) K/uL Neut # (Auto) (1.4-6.5) K/uL Lymph # (Auto) (1.2-3.4) K/uL [place] # (Auto) (0.11-0.59) K/uL Eos # (Auto) (0-0.5) K/uL Baso # (Auto) (0-0.2) K/uL PT 11.4 (9.0-12.0) Seconds INR 1.1 (0.9-1.1) APTT 29.7 (21.0-31.0) Seconds PTT Ratio 1.1 Sodium (136-145) mmol/L Potassium (3.5-5.1) mmol/L Chloride (98-107) mmol/L Carbon Dioxide (21-32) mmol/L Anion Gap (3-11) BUN (7-18) mg/dl Creatinine (0.6-1.2) mg/dl Est Cr Clr Drug Dosing ml/min Est GFR ( Amer) Est GFR (Non-Af Amer) BUN/Creatinine Ratio (10-20) Glucose (70-99) mg/dl Lactate (0.4-2.0) mmol/L Calcium (8.5-10.1) mg/dl Phosphorus 3.7 (2.5-4.9) mg/dl Magnesium 1.6 L (1.8-2.4) mg/dl Total Bilirubin (0.2-1) mg/dl AST (15-37) U/L ALT (12-78) U/L Alkaline Phosphatase (45-117) U/L Total Protein (6.4-8.2) gm/dl Albumin (3.4-5.0) gm/dl Globulin (2.5-4.0) gm/dl Albumin/Globulin Ratio (0.9-2) Lipase (73-393) U/L HCG, Qual (Negative) Urine Color Urine Appearance (Clear) Urine pH (4.5-7.5) Ur Specific [place] (1.000-1.030) Urine Protein (Negative) Urine Glucose (UA) (Negative) Urine Ketones (Negative) Urine Blood (Negative) Urine Nitrite (Negative) Urine Bilirubin (Negative) Urine Urobilinogen (Negative) Ur Leukocyte Esterase (Negative) Urine WBC (Auto) (0-5) /hpf Urine RBC (Auto) (0-4) /hpf U Hyaline Cast (Auto) (0-5) /lpf U Epithel Cells (Auto) (0-5) /lpf Urine Bacteria (Auto) (Negative) Diagnostic Findings XR chest 1V portable HISTORY: cough COMPARISON: Chest 06/10/2016. FINDINGS: There is a new right medial lung base airspace opacity which partially obscures the right hemidiaphragm. The left lung is clear. The heart is normal in size. No pleural effusions. No pneumothorax. IMPRESSION: A new right lower lobe airspace opacity which likely represents a pneumonia. Electronically signed by: Jonnie Dickerson M.D. 09/18/2018 10:07 AM Dictated: 09/18/18 1006 Transcribed: 09/18/18 1006 ECG Additional Comments: The study shows sinus tachycardia at 112bpm, normal axis, XE=648, QRS=98, PMd=928, no acute ischemic changes Code Status & VTE Plan Code Status FULL (1) Anemia Anemia type: unspecified type Qualified Code(s): D64.9 - Anemia, unspecified (2) Depression Depression Type: unspecified Qualified Code(s): F32.9 - Major depressive disorder, single episode, unspecified (3) Hypertension Hypertension type: essential hypertension Qualified Code(s): I10 - Essential (primary) hypertension (4) Pneumonia Laterality: right Lung location: lower lobe of lung Pneumonia type: due to unspecified organism Qualified Code(s): J18.1 - Lobar pneumonia, unspecified organism (5) Asthma Asthma complication type: uncomplicated Asthma persistence: persistent Asthma severity: mild Qualified Code(s): J45.30 - Mild persistent asthma, uncomplicated
[2018-09-18] MEDS ORDERED: ONDANSETRON INJ 2 MG/ML 2 ML VIAL IV PRN (14:30)
[2018-09-18] MEDS ORDERED: DOCUSATE SODIUM 100 MG CAP PO PRN (14:30)
[2018-09-18] MEDS ORDERED: ALBUTEROL 0.5% NEB SOLN 2.5 MG/0.5 ML VIAL NEB PRN (14:30)
[2018-09-18] MEDS ORDERED: cefTRIAXone SODIUM 1,000 MG in DEXTROSE 5% 50 ML IV SCH (14:30)
[2018-09-18 15:22] LABS: INR 1.1 (0.9-1.1); Partial Thromboplastin Ratio 1.1; Partial Thromboplastin Time 29.7 Seconds (21.0-31.0); Prothrombin Time 11.4 Seconds (9.0-12.0)
[2018-09-18 15:23] LABS: Magnesium 1.6 mg/dl (1.8-2.4); Phosphorus 3.7 mg/dl (2.5-4.9)
[2018-09-18] MEDS: methylPREDNISolone 30 MG in SYRINGE 0 ML IV SCH ×2 (15:55→21:15)
[2018-09-18] MEDS: SODIUM CHLORIDE 0.9% 1000ML 1,000 ML IV SCH (15:56)
[2018-09-18] MEDS: GUAIFENESIN/CODEINE 200MG/20MG 10ML UDC PO PRN (16:00)
[2018-09-18] MEDS: MAGNESIUM SULFATE / D5W 1 GM/100 ML BAG IV SCH ×2 (17:16→19:14)
[2018-09-18] MEDS: ACETAMINOPHEN 325 MG TAB PO PRN (19:16)
[2018-09-18] MEDS: cefTRIAXone SODIUM 2,000 MG in DEXTROSE 5% 50 ML IV SCH (20:22)
[2018-09-18] MEDS ORDERED: ENOXAPARIN INJ 40 MG/0.4 ML SYR SQ SCH (21:00)
[2018-09-18] MEDS: BuPROPion SR 100 MG TABCR PO SCH (21:15)
[2018-09-19] MEDS: SODIUM CHLORIDE 0.9% 1000ML 1,000 ML IV SCH (02:14)
[2018-09-19 06:49] LABS: Basophils # (auto) 0.01 K/uL (0-0.2); Hematocrit (blood only) 30.3 % (37-47); Hemoglobin 9.6 g/dL (12.0-16.0); Immature Granulocytes # (auto) 0.07 K/uL (0.00-0.02); Immature Granulocytes % (auto) 0.3 %; Lymphocytes # (auto) 1.72 K/uL (1.2-3.4); Mean Corpuscular Hgb Conc 31.7 g/dL (32-36); Mean Corpuscular Volume 73.4 fL (80-100); Mean Platelet Volume 8.9 fL (7.4-10.4); Monocytes # (auto) 1.06 K/uL (0.11-0.59); Monocytes % (auto) 4.9 %; Neutrophils # (auto) 18.72 K/uL (1.4-6.5); Neutrophils % (auto) 86.8 %; Platelet Count 309 K/uL (130-400); RDW Coefficient of Variation 16.2 % (11.5-14.5); RDW Standard Deviation 43.7 fL (36.4-46.3); Red Blood Count 4.13 M/uL (4.2-5.4); White Blood Count 21.58 K/uL (4.8-10.8)
[2018-09-19 07:26] LABS: BUN Creatinine Ratio 20.7 (10-20); Calcium 7.7 mg/dl (8.5-10.1); Est GFR (African American) 148.4; Ferritin 35.4 ng/ml (8-388); Potassium 3.8 mmol/L (3.5-5.1)
[2018-09-19] MEDS: ACETAMINOPHEN 325 MG TAB PO PRN ×2 (08:00→21:13)
[2018-09-19] MEDS: methylPREDNISolone 30 MG in SYRINGE 0 ML IV SCH (08:01)
[2018-09-19] MEDS: BuPROPion SR 100 MG TABCR PO SCH ×2 (08:02→21:14)
[2018-09-19] MEDS ORDERED: hydroCHLOROthiazide 25 MG TAB PO SCH (09:00)
[2018-09-19] MEDS ORDERED: AZITHROMYCIN 250 MG in DEXTROSE 5% 250 ML IV SCH (09:00)
[2018-09-19] MEDS: GUAIFENESIN/CODEINE 200MG/20MG 10ML UDC PO PRN ×2 (10:42→21:13)
--- NOTE | 2018-09-19 11:03 | Hospitalist Progress Note ---
Date of Service September 19, 2018 Assessment & Plan (1) Sepsis: present on admission, due to pneumonia sepsis quickly resolved with IV fluids and antibiotics no evidence of end organ failure or shock (2) Pneumonia: Patient febrile at 39.1, tachycardic at 132 bpm, neutrophil predominant leukocytosis (WBC=32.77, recent Prednisone use). Adequate oxygenation on room air, no respiratory distress. Severe cough with conversation and deep breathing. Coarse breath sounds bilaterally with scattered inspiratory and expiratory wheezing. CXR with new RLL airspace opacity favoring PNA. Patient most likely with CAP in setting of asthma responded well to Rocephin and Zithromax will continue with 7 day course convert to Cefdinir and PO Zithromax on discharge no fever, no chills WBC trending down to 21k breathing a lot easier eating and drinking more today no growth on blood cultures (3) Asthma: Patient with history of well controlled asthma. Presents with PNA, diffuse wheezing and SOB change solumedrol to Prednisone starting today plan for quick taper on discharge (4) Hypertension: Blood pressure presently well controlled. Patient on HCTZ at home, being titrated by PCP - hold HCTZ in setting of acute infection and normal BP -Continue to monitor BP (5) Depression: Chronic. Stable on current medication regimen -Continue Wellbutrin daily (6) Anemia: Patient with microcytic, hypochromic anemia. Hg=11.3, Hct=34.3, HCV=71.6, MCH=23.6. Presently being worked up by Ob-Risk Control Consultant for DUB in setting of PCOS. No active bleeding at present. -Check iron studies -CBC in AM (7) Elevated lactic acid level: Lactate=3.7. Patient is hemodynamically stable, non-toxic in appearance -Repeat lactate was normal stop fluids plan to d/c to home tomorrow Subjective patient feeling much better today, breathing a lot easier no wheezing minimal cough, no sputum production no true fever but she has experienced some sweats and chills appetite is much better today compared to yesterday reviewed labs, WBC down to 21k from 30k Cr and electrolytes stable updated family at the bedside, discussed going home tomorrow morning Review of Systems Review of Systems: All systems reviewed & are unremarkable except as noted in HPI & below Respiratory: + cough; no dyspnea, no dyspnea on exertion and no sputum production Cardiovascular: no chest pain Gastrointestinal: no abdominal pain, no nausea, no vomiting, no constipation and no diarrhea/loose stools Genitourinary: + bleeding between periods (reports pink discharge for 40 days, just completed a normal period, no bleeding today) and + abnormal vaginal bleeding; no dysuria Physical Exam Constitutional: WD/WN, vitals as above Eyes: PERRL, conjunctivae normal, anicteric sclerae ENMT: external ear and nose normal, oropharynx normal Neck: trachea midline, no thyromegaly Respiratory: normal respiratory effort, lungs clear to auscultation Cardiovascular: RRR, no murmur, no edema Gastrointestinal (Abdomen): normal bowel sounds, soft, nontender, no hepatosplenomegaly Musculoskeletal: no cyanosis or clubbing, extremities motor strength 5/5 Skin: no rashes, warm and dry Neurologic: patellar DTR's 2+ bilat, sensation intact and PERRL, EOMI, accommodation nl, no face palsy, no dysarthria Psychiatric: A+Ox3, euthymic affect Lymphatic: no cervical or axillary lymphadenopathy Results & Data Vital Signs (Past 12 Hours) Vital Signs Temp Pulse Pulse Resp BP Pulse Ox 09/19/18 07:22 88 09/19/18 07:19 36.9 C 93 H 16 125/78 95 09/19/18 04:12 36.6 C 92 H 21 111/73 94 09/18/18 23:32 36.5 C 98 H 19 128/81 95 09/18/18 23:25 95 H Laboratory Results Laboratory Results - last 24 hr 09/18/18 09/18/18 09/18/18 11:13 11:41 14:55 WBC RBC Hgb Hct MCV MCH MCHC RDW Std Deviation RDW Coeff of Terese Plt Count MPV Immature Gran % (Auto) Neut % (Auto) Lymph % (Auto) [place] % (Auto) Eos % (Auto) Baso % (Auto) Immature Gran # (Auto) Neut # (Auto) Lymph # (Auto) [place] # (Auto) Eos # (Auto) Baso # (Auto) PT INR APTT PTT Ratio Sodium Potassium Chloride Carbon Dioxide Anion Gap BUN Creatinine Est Cr Clr Drug Dosing Est GFR ( Amer) Est GFR (Non-Af Amer) BUN/Creatinine Ratio Glucose Lactate 3.7 H* 2.5 H* Calcium Phosphorus Magnesium Iron TIBC Ferritin Urine Color Dark Yellow Urine Appearance Clear Urine pH 8.5 H Ur Specific [place] 1.027 Urine Protein Negative Urine Glucose (UA) Negative Urine Ketones Trace H Urine Blood Trace H Urine Nitrite Negative Urine Bilirubin Negative Urine Urobilinogen Negative Ur Leukocyte Esterase Negative Urine WBC (Auto) 1-5 Urine RBC (Auto) 0-4 U Hyaline Cast (Auto) 1-5 U Epithel Cells (Auto) >30 H Urine Bacteria (Auto) Negative 09/18/18 09/18/18 09/19/18 14:55 14:55 06:39 WBC 21.58 H D RBC 4.13 L Hgb 9.6 L Hct 30.3 L MCV 73.4 L MCH 23.2 L MCHC 31.7 L RDW Std Deviation 43.7 RDW Coeff of Terese 16.2 H Plt Count 309 MPV 8.9 Immature Gran % (Auto) 0.3 Neut % (Auto) 86.8 Lymph % (Auto) 8.0 [place] % (Auto) 4.9 Eos % (Auto) 0.0 Baso % (Auto) 0.0 Immature Gran # (Auto) 0.07 H Neut # (Auto) 18.72 H Lymph # (Auto) 1.72 [place] # (Auto) 1.06 H Eos # (Auto) 0.00 Baso # (Auto) 0.01 PT 11.4 INR 1.1 APTT 29.7 PTT Ratio 1.1 Sodium Potassium Chloride Carbon Dioxide Anion Gap BUN Creatinine Est Cr Clr Drug Dosing Est GFR ( Amer) Est GFR (Non-Af Amer) BUN/Creatinine Ratio Glucose Lactate Calcium Phosphorus 3.7 Magnesium 1.6 L Iron TIBC Ferritin Urine Color Urine Appearance Urine pH Ur Specific [place] Urine Protein Urine Glucose (UA) Urine Ketones Urine Blood Urine Nitrite Urine Bilirubin Urine Urobilinogen Ur Leukocyte Esterase Urine WBC (Auto) Urine RBC (Auto) U Hyaline Cast (Auto) U Epithel Cells (Auto) Urine Bacteria (Auto) 09/19/18 09/19/18 06:39 06:39 WBC RBC Hgb Hct MCV MCH MCHC RDW Std Deviation RDW Coeff of Terese Plt Count MPV Immature Gran % (Auto) Neut % (Auto) Lymph % (Auto) [place] % (Auto) Eos % (Auto) Baso % (Auto) Immature Gran # (Auto) Neut # (Auto) Lymph # (Auto) [place] # (Auto) Eos # (Auto) Baso # (Auto) PT INR APTT PTT Ratio Sodium 141 Potassium 3.8 Chloride 111 H Carbon Dioxide 25 Anion Gap 5.0 BUN 10 D Creatinine 0.49 L D Est Cr Clr Drug Dosing 183.0 Est GFR ( Amer) 148.4 Est GFR (Non-Af Amer) 128.0 BUN/Creatinine Ratio 20.7 H Glucose 106 H Lactate 0.9 Calcium 7.7 L Phosphorus Magnesium Iron 9 L TIBC 297 Ferritin 35.4 Urine Color Urine Appearance Urine pH Ur Specific [place] Urine Protein Urine Glucose (UA) Urine Ketones Urine Blood Urine Nitrite Urine Bilirubin Urine Urobilinogen Ur Leukocyte Esterase Urine WBC (Auto) Urine RBC (Auto) U Hyaline Cast (Auto) U Epithel Cells (Auto) Urine Bacteria (Auto) Medications Administered Current Inpatient Medications Acetaminophen (Tylenol) 650 mg PO Q4H PRN PRN Reason: pain/fever Stop: 10/18/18 14:29 Last Admin: 09/19/18 08:00 Dose: 650 mg Documented by: Albuterol (Ventolin 0.5% 2.5mg/0.5ml) 2.5 mg NEB Q2H PRN PRN Reason: SOB/Wheeze Stop: 10/18/18 14:29 Benzonatate (Tessalon Perle) 200 mg PO TID PRN PRN Reason: Cough Stop: 10/18/18 14:29 Bupropion HCl (Wellbutrin-Sr) 200 mg PO BID [facility] Stop: 10/18/18 20:59 Last Admin: 09/19/18 08:02 Dose: 200 mg Documented by: Docusate Sodium (Colace) 100 mg PO BID PRN PRN Reason: Constipation Stop: 10/18/18 14:29 Enoxaparin Sodium (Lovenox) 40 mg SQ Q24H [facility] Stop: 10/18/18 20:59 Last Admin: 09/18/18 21:16 Dose: 40 mg Documented by: Guaifenesin/Codeine Phosphate (Robitussin-Ac Sugar Free) 10 ml PO Q6H PRN PRN Reason: Cough Stop: 10/18/18 14:29 Last Admin: 09/19/18 10:42 Dose: 10 ml Documented by: Hydrochlorothiazide (Hctz) 25 mg PO DAILY [facility] Stop: 10/19/18 08:59 Last Admin: 09/19/18 08:02 Dose: 25 mg Documented by: Azithromycin 250 mg/ Dextrose 252.5 mls @ 125 mls/hr IV DAILY [facility]; Protocol Stop: 09/26/18 08:59 Last Infusion: 09/19/18 10:07 Dose: Infused Documented by: Methylprednisolone 30 mg/ (Syringe) 0.48 mls @ 1.5 mls/min IV TID [facility] Stop: 10/18/18 14:29 Last Admin: 09/19/18 08:01 Dose: 1.5 mls/min Documented by: Ceftriaxone Sodium 2,000 mg/ (Dextrose) 50 mls @ 100 mls/hr IV Q24H [facility]; Protocol Stop: 09/25/18 19:59 Last Infusion: 09/18/18 21:12 Dose: Infused Documented by: Ondansetron HCl (Zofran) 4 mg IV Q6H PRN PRN Reason: Nausea Stop: 10/18/18 14:29 Last Admin: 09/18/18 15:56 Dose: 4 mg Documented by: (1) Anemia Anemia type: unspecified type Qualified Code(s): D64.9 - Anemia, unspecified (2) Depression Depression Type: unspecified Qualified Code(s): F32.9 - Major depressive disorder, single episode, unspecified (3) Hypertension Hypertension type: essential hypertension Qualified Code(s): I10 - Essential (primary) hypertension (4) Pneumonia Laterality: right Lung location: lower lobe of lung Pneumonia type: due to unspecified organism Qualified Code(s): J18.1 - Lobar pneumonia, unspecified organism (5) Asthma Asthma complication type: uncomplicated Asthma persistence: persistent Asthma severity: mild Qualified Code(s): J45.30 - Mild persistent asthma, uncomplicated
[2018-09-19] MEDS: predniSONE 10 MG TABLET PO SCH (14:02)
[2018-09-19] MEDS: BENZONATATE 100 MG CAPSULE PO PRN (15:25)
[2018-09-19] MEDS: cefTRIAXone SODIUM 2,000 MG in DEXTROSE 5% 50 ML IV SCH (21:07)
[2018-09-20 08:18] LABS: Basophils # (auto) 0.01 K/uL (0-0.2); Eosinophils # (auto) 0.19 K/uL (0-0.5); Eosinophils % (auto) 0.9 %; Hematocrit (blood only) 33.2 % (37-47); Hemoglobin 10.3 g/dL (12.0-16.0); Immature Granulocytes % (auto) 0.5 %; Lymphocytes # (auto) 4.37 K/uL (1.2-3.4); Mean Corpuscular Volume 72.8 fL (80-100); Mean Platelet Volume 9.2 fL (7.4-10.4); Monocytes # (auto) 1.03 K/uL (0.11-0.59); Neutrophils # (auto) 15.09 K/uL (1.4-6.5); Neutrophils % (auto) 72.6 %; Platelet Count 402 K/uL (130-400); RDW Coefficient of Variation 16.1 % (11.5-14.5); RDW Standard Deviation 43.3 fL (36.4-46.3); Red Blood Count 4.56 M/uL (4.2-5.4); White Blood Count 20.79 K/uL (4.8-10.8)
[2018-09-20] MEDS: predniSONE 10 MG TABLET PO SCH (08:37)
[2018-09-20] MEDS: BENZONATATE 100 MG CAPSULE PO PRN (08:38)
[2018-09-20] MEDS: BuPROPion SR 100 MG TABCR PO SCH (08:38)
[2018-09-20 08:50] LABS: BUN Creatinine Ratio 20.7 (10-20); Creatinine Clr Calc Pharmacy 123.7 ml/min; Est GFR (African American) 127.5; Potassium 3.6 mmol/L (3.5-5.1)
[2018-09-20] MEDS ORDERED: AZITHROMYCIN 250 MG TAB PO SCH (09:00)
--- NOTE | 2018-09-20 10:28 | Discharge Summary ---
Date of Service September 20, 2018 Admission HPI Per Admitting Provider Kim Niño is a 33yo female with history of asthma, HTN and depression presenting with cough/SOB and fever. Patient reports dry cough for the last week as well as worsening shortness of breath. She was started on Prednisone taper 5 days ago which she has been taking as directed. This AM she developed fever and chills as well as nausea with 5-6 episodes of non-bloody/non-bilious vomiting. Patient states that she overall feels very sick. No additional complaints at this time. ER Course: Tylenol, Albuterol, Azithromycin, Cefepime, Toradol, Zofran Admission Exam Per Admitting Provider General: NAD, ill in appearance, AA&O x 4, cough with speaking and deep breathing Skin: warm, dry, intact, no rashes or lesions HEENT: NC/AT, PERRL, EOMI, anicteric sclera, conjunctiva without injection, external ear normal to inspection and nontender, nares patent, slightly dry mucus membranes, dentition intact, no oropharyngeal lesions, neck supple, trachea midline, no LAD, no thyromegaly, no JVD Heart: +S1/S2, regular, tachycardic, no m/r/g Lungs: equal air entry bilaterally, coarse breath sounds bilaterally with rhonchi, diffuse wheezing Abd: +BS, soft, NT/ND, no masses/organomegaly/ascites Ext: warm, 2+ pulses in UE/LE bilaterally, no clubbing/cyanosis or edema Neuro: nonfocal, patient AA&O x 4, speech intact, no facial droop, moving all extremities on command with equal strength 5/5 Principal Diagnosis Community acquired pneumonia Discharge Exam Constitutional WD/WN, vitals as above Eyes PERRL, conjunctivae normal, anicteric sclerae ENMT external ear and nose normal, oropharynx normal Neck trachea midline, no thyromegaly Respiratory normal respiratory effort, lungs clear to auscultation Cardiovascular RRR, no murmur, no edema Gastrointestinal (Abdomen) normal bowel sounds, soft, nontender, no hepatosplenomegaly Musculoskeletal no cyanosis or clubbing, extremities motor strength 5/5 Skin no rashes, warm and dry Neurologic patellar DTR's 2+ bilat, sensation intact and PERRL, EOMI, accommodation nl, no face palsy, no dysarthria Psychiatric A+Ox3, euthymic affect Lymphatic no cervical or axillary lymphadenopathy Discharge Data Allergies Allergy/AdvReac Type Severity Reaction Status Date / Time No Known Allergies Allergy Verified 09/18/18 09:52 Consultations 09/18/18 11:19 ED Decision to Admit Stat Hospital Course (1) Sepsis: present on admission, due to pneumonia sepsis quickly resolved with IV fluids and antibiotics no evidence of end organ failure or shock (2) Pneumonia: Patient febrile at 39.1, tachycardic at 132 bpm, neutrophil predominant leukocytosis (WBC=32.77, recent Prednisone use). Adequate oxygenation on room air, no respiratory distress. Severe cough with conversation and deep breathing. Coarse breath sounds bilaterally with scattered inspiratory and expiratory wheezing. CXR with new RLL airspace opacity favoring PNA. Patient most likely with CAP in setting of asthma responded well to Rocephin and Zithromax will continue with 7 day course convert to Cefdinir and PO Zithromax on discharge no fever, no chills WBC trending down quickly in response to antibiotics breathing a lot easier eating and drinking more for two days no growth on blood cultures (3) Asthma: Patient with history of well controlled asthma. Presents with PNA, diffuse wheezing and SOB change solumedrol to Prednisone on 09/19 plan for quick taper on discharge, 30mg x 3, 20mg x 3 and 10mg x 3 (4) Hypertension: Blood pressure presently well controlled. Patient on HCTZ at home, being titrated by PCP - hold HCTZ in setting of acute infection and normal BP -Continue to monitor BP (5) Depression: Chronic. Stable on current medication regimen -Continue Wellbutrin daily (6) Anemia: Patient with microcytic, hypochromic anemia. Hg=11.3, Hct=34.3, HCV=71.6, MCH=23.6. Presently being worked up by Ob-Medical Staff Physician for DUB in setting of PCOS. No active bleeding at present. -Check iron studies -CBC in AM (7) Elevated lactic acid level: Lactate=3.7. Patient is hemodynamically stable, non-toxic in appearance -Repeat lactate was normal (8) Vaginal bleeding between periods: patient describes some spotting every day between periods has had difficult time getting in with her information technology coordinator encouraged her to consider going back to [facility] now that her insurance would allow it Total Time Total Time Spent Total Time Spent (In Minutes): 35 minutes Total Time Includes: Examination of the Patient, Discharge Planning and Medication Reconciliation Discharge Plan Discharge Items Patient Disposition: Home - Self-Care Reason For Visit: PNA, ASTHMA Discharge Diagnosis: Pneumonia Asthma Condition: Good Discharge Goals: Improve disease control and Improve function Activity: Resume your previous activity Non-emergency contact: Primary Care Provider Call non-emergency contact if: you have any medication questions, your symptoms worsen and you have a fever Follow-up/Referrals: Coleman Sadler, [Primary Care Provider] - Diet: Carb Consistent or DM2 Addtl Provider Instructions: Medications: - ZITHROMAX: complete three more days - CEFDINIR: take twice a day for 10 more doses, next dose is tomorrow morning - PREDNISONE: resume the taper that you were on as outpatient, complete as prescribed - NEBULIZERS: use them 3-4 times a day as needed for any wheezing or shortness of breath Right lower lobe pneumonia and asthma improved greatly with steroids and antibiotics will complete 5 more days of Cefdinir and 3 more days of Zithromax follow up with PCP next week, call for appointment use the Prednisone as prescribed to complete taper and use nebulizers as needed Bleeding/spotting between periods strongly consider moving to [facility] if [facility] given that you had a normal pap I would not have concerns for any cervical issues cause of bleeding is likely hormonal can ask Dr. Sadler for referral to [facility] if needed Prescriptions: Continued metformin 500 mg Tablet 500 mg PO BID RF: 0 bupropion HCl [Wellbutrin SR] 100 mg Tablet Sustained-Release 12 Hr 200 mg PO BID RF: 0 benzonatate 200 mg capsule 200 mg PO TID PRN (Reason: Cough) RF: 0 hydrochlorothiazide 25 mg tablet 25 mg PO DAILY RF: 0 prednisone 10 mg tablet 10 mg PO UD Qty: 18 RF: 0 Stand-Alone Forms: Work/School Release (ED), [facility], Work/School Release (Inpt) Discharge Orders: Discharge Order (Routine); Ordered 09/20/18 Ordered By: Fernandez Riley Admission Data Admit Date/Time: 09/18/18 13:00 Attending Provider: Fernandez Riley Admit Provider: Ninoska Subramanian Primary Care Provider: Coleman Sadler Other Providers: Ninoska Subramanian Service: Telemetry Medical Other Interventions: Discharge Summary Assessment (RN) Last Done: 09/20/18 09:41 DC Date/Time DO NOT enter until pt leaves facility: 09/20/18 11:06
== END 2018-09-20 11:06 | disposition home or self-care (01) | DRG 871 ==
LOC: ED 08:43 → 2N 13:00 → SUATTDRO 13:00 → 2N 13:54
DX: A41.9 Sepsis, unspecified organism; J45.909 Unspecified asthma, uncomplicated; I10 Essential (primary) hypertension; D50.9 Iron deficiency anemia, unspecified; Z83.3 Family history of diabetes mellitus; J18.9 Pneumonia, unspecified organism; F32.9 Major depressive disorder, single episode, unspecified